=== PATIENT | female | born 1950 | race Caucasian/White ===

== ENCOUNTER → 2017-02-13 | Outpatient (CLI) | payer MEDICARE, OTHER | END | disposition home or self-care (01) | LOC: GMAM 10:21 | PROVIDERS: ATTEND Family Medicine | DX: E03.8 Other specified hypothyroidism (principal) ==

== ENCOUNTER → 2017-03-11 | Outpatient (CLI) | payer MEDICARE, OTHER ==
--- NOTE | 2017-03-11 16:08 | MRI ---
Study: MRI of the Right Shoulder. Indication: SHOULDER PAIN Technique: Multiplanar, multi sequence MRI of the right shoulder was obtained without intravenous contrast. Comparison: None. Findings: Mild to moderate AC joint osteoarthritis. Type I acromion with mild lateral downsloping. Small-volume subacromial/subdeltoid bursal fluid. Supraspinatus and infraspinatus tendinosis with irregular high-grade articular tearing throughout the supraspinatus tendon insertion and anterior infraspinatus tendon insertion. The tear extends over an AP length of 23 mm and a transverse width of 7 mm. It involves at least 90% of expected tendon thickness anteriorly where full-thickness extension may be present. In addition at the anterior infraspinatus there is medial delamination of the tear into the critical zone. No tendon retraction. Subscapularis tendinosis. Teres minor tendon intact. Mild atrophy superior margin subscapularis muscle belly. No fatty infiltration. Intracapsular long head biceps tendinosis. Circumferential labral truncation and tearing most pronounced superiorly. Minimal glenohumeral joint osteoarthritis with a tiny joint effusion. No acute fracture. Impression: High-grade tear articular tearing throughout the supraspinatus tendon insertion and anterior infraspinatus tendon insertion where there is medial delamination into the critical zone. Subscapularis tendinosis. Mild atrophy superior margin subscapularis muscle belly. Circumferential labral truncation and tearing. Minimal glenohumeral joint osteoarthritis. Mild to moderate AC joint osteoarthritis. Electronically signed by: Chris Olmedo MD 03/11/2017 4:08 PM CDT
== END | disposition home or self-care (01) ==
LOC: MRI 08:56
PROVIDERS: ATTEND Family Medicine
DX: M25.511 Pain in right shoulder (principal)

== ENCOUNTER → 2017-04-28 | Outpatient (CLI) | payer MEDICARE, OTHER ==
--- NOTE | 2017-04-28 14:40 | RAD ---
EXAM DESCRIPTION: Pelvis CLINICAL HISTORY: PAIN IN LEFT HIP COMPARISON: None. TECHNIQUE: AP pelvis FINDINGS: Phlebolith type calcifications are observed centrally in the pelvis. Mild degenerative changes are seen in the pubic symphysis. No fracturing is detected. Proximal femurs are normal. IMPRESSION: Mild degenerative changes are observed. No fracturing is detected. Electronically signed by: Daniel De Leon MD 04/28/2017 2:39 PM CDT
--- NOTE | 2017-04-28 14:41 | RAD ---
EXAM DESCRIPTION: Hip,Left 2 Views CLINICAL HISTORY: PAIN IN LT HIP COMPARISON: None. TECHNIQUE: AP and frog lateral left FINDINGS: Mild degenerative changes are observed in the pubic symphysis. The femur is unremarkable. No fracture or dislocation is seen. IMPRESSION: Normal left hip. Electronically signed by: Daniel De Leon MD 04/28/2017 2:39 PM CDT
== END | disposition home or self-care (01) ==
LOC: RAD 07:40
PROVIDERS: ATTEND Orthopaedic Surgery
DX: M25.552 Pain in left hip (principal)

== ENCOUNTER → 2017-11-01 | Outpatient (CLI) | payer MEDICARE, OTHER | LOC: GMA 17:13 | PROVIDERS: ATTEND Nurse Practitioner Family | DX: N30.00 Acute cystitis without hematuria (principal) ==

== ENCOUNTER → 2017-11-17 | Outpatient (CLI) | payer MEDICARE, OTHER ==
--- NOTE | 2017-11-18 08:52 | MRI ---
EXAM DESCRIPTION: Lumbar Spine w/o Contrast MRI. CLINICAL HISTORY: BACK PAIN COMPARISON: MRI scan lumbar spine 08/03/2013. TECHNIQUE: Multiplanar, multiple standard sequences, non contrast MRI, lumbar spine. FINDINGS: L5-S1: Disc desiccation minimal disc space loss. Anterior bulging. Small Schmorl's node anterior L5 endplate. Minimal disc bulge into the canal and both foramina. Mild canal narrowing. Facets and ligaments unremarkable. L4-5: Minimal disc space loss posterior. Grade 1 retrolisthesis. Posterior broad-based disc bulge is minimal, but possible small midline extrusion inferior abutting the thecal sac. Appears to be chronic. Mild to moderate canal narrowing. Mild hypertrophy of the bilateral flavum ligaments. Bilateral mild foraminal narrowing. Facets negative. L3-4: Minimal desiccation. Tiny posterior bulge into the canal and right foramen. Mild canal narrowing. 5 to 6 mm protrusion into the left foramen, abutting the left L3 nerve; foramen is moderately narrowed. New since the prior study. Bilateral flavum ligament hypertrophy. L2-3: Disc desiccation and minimal disc space loss. Small Schmorl's node in the inferior L2 endplate. Anterior disc bulging. Tiny posterior disc bulge with mild canal narrowing. Bilateral foramina are patent. Minimal flavum ligament hypertrophy. Facets negative. L1-2: disc unremarkable and disc space preserved. Canal and foramina are patent. Minimal hypertrophy of the posterior ligaments. Facets negative. T12-L1: Disc is unremarkable and disc space preserved. Canal and foramina are patent. Posterior ligaments and facets are negative. Conus terminates at this level. Paravertebral soft tissues negative. Normal marrow signal in the remaining vertebral bodies and the posterior elements. Vertebral bodies are not compressed at any level. IMPRESSION: 1. Posterior L4-5 disc bulge with midline small inferior disc extrusion which appears to be chronic. No evidence of nerve impingement or significant canal narrowing. Bilateral mild foraminal narrowing. Grade 1 retrolisthesis. 2. L3-4 disc protrusion into the left foramen abutting the exiting left L3 nerve, new finding in the interval since the prior study. Moderate foraminal narrowing. Correlate with clinical findings of left L3 radiculopathy. Electronically signed by: Odilon Boyle MD 11/18/2017 8:51 AM SOCIAL ECONOMIST
== END ==
LOC: MRI 12:53
PROVIDERS: ATTEND Nurse Practitioner Acute Care
DX: M25.552 Pain in left hip (principal); M51.26 Other intervertebral disc displacement, lumbar region

== ENCOUNTER 2017-11-22 09:21 | Emergency (ER) | payer MEDICARE, OTHER ==
[2017-11-22 09:32] VITALS: BP 160/87; TEMP 97.1; O2SAT 97
--- NOTE | 2017-11-22 10:02 | ED.PDOC ---
History of Present Illness - General Chief Complaint: General Stated Complaint: Left hip pain Time Seen by Provider: 11/22/17 09:54 Source: patient Exam Limitations: no limitations - History of Present Illness Initial Comments: Deidre Hinkle 67 y/o female seen er today with sharp burning pain on left hip radiating ro her groin for the last 7 days.Stated hurts when she walks and moves around.Denies history of remote or recent trauma on her left hip.Had same pain last year seen by orthopedist went for PT and got better .Now it recurred and MRI-left hip showing labral tear left hip no fracture ordered by Md and Mri of her back no significant disc herniation and fracture . Occurred: other - see hpi Pain - Lower Extremity: moderate: Left Thigh/Hip Method of Injury: unknown Improving Factors: rest Worsening Factors: movement Allergies/Adverse Reactions: Allergies Ofloxacin [From Floxin] Allergy (Verified 11/22/17 09:31) Sulfate Allergy (Verified 11/22/17 09:31) Home Medications: Ambulatory Orders Acetaminophen W/ Codeine [Tylenol w/Codeine 300-30 mg] 1 tab PO Q6HRS #20 tab Review of Systems - Review of Systems Constitutional: States: no symptoms reported EENTM: States: no symptoms reported Respiratory: States: no symptoms reported Cardiology: States: no symptoms reported Gastrointestinal/Abdominal: States: no symptoms reported Genitourinary: States: no symptoms reported Musculoskeletal: States: see HPI Skin: States: no symptoms reported Neurological: States: no symptoms reported All other Systems: Reviewed and Negative, No Change from Baseline Past Medical History (General) - Patient Medical History Hx Stroke: No Hx Congestive Heart Failure: No Hx Thyroid Disease: Yes Hx Diabetes: No Surgical History: tonsillectomy, other - hysterectomy,right shoulder - Vaccination History Hx Influenza Vaccination: Yes - 2017 Hx Pneumococcal Vaccination: Yes - Social History Hx Tobacco Use: No Hx Physical Abuse: No Hx Emotional Abuse: No Hx Suspected Abuse: No Family Medical History - Family History Mother Family History: No Known Living Status: Physical Exam - Physical Exam General Appearance: Alert, Comfortable, No apparent distress Eyes, Ears, Nose, Throat: normal ENT inspection Neck: non-tender, full range of motion, supple Cardiovascular/Respiratory: regular rate, rhythm, no M/R/G, normal peripheral pulses, normal breath sounds Gastrointestinal/Abdominal: non-tender, no organomegaly Back: normal inspection, no CVA tenderness, no vertebral tenderness Thigh/Hip: normal inspection, normal ROM - mild pain on hip extension left hip, bone tenderness - left hip, soft tissue tenderness - left groin Leg: normal inspection, non-tender Knee: normal inspection, non-tender Ankle: normal inspection, non-tender Foot: normal inspection, non-tender Neuro/Tendon: normal sensation, normal motor functions, normal tendon functions , responds to pain Mental Status: alert, oriented x 3 Skin: normal color, warm/dry Progress - Progress Progress: 11/22/17 10:05 Vital Signs - 8 hr 11/22/17 09:27 Temperature 97.1 F L Pulse Rate [ 84 Left Radial] Respiratory 20 Rate Blood Pressure 160/87 [Left Arm] O2 Sat by Pulse 97 Oximetry Departure - Departure Clinical Impression: Hip pain, left Labral tear of left hip joint Qualifiers: Encounter type: initial encounter Qualified Code(s): S73.192A - Other sprain of left hip, initial encounter Time of Disposition: 10:06 Disposition: Discharge to Home or Self Care Condition: Fair Departure Forms: ED Discharge - Pt. Copy, Patient Portal Self Enrollment Instructions: Hip Labral Tears, DI for Hip Labral Tear Activity: ambulate only with walker Referrals: Benson Pringle MD [Primary Care Provider] - 1-2 Weeks Prescriptions: Acetaminophen W/ Codeine [Tylenol w/Codeine 300-30 mg] 1 tab PO Q6HRS #20 tab Home Medications: Ambulatory Orders Acetaminophen W/ Codeine [Tylenol w/Codeine 300-30 mg] 1 tab PO Q6HRS #20 tab Additional Instructions: May take Barnhart 5 mg 1-2 tabs every 6 hours for pain regularly.;Follow up with primary Md 11/24/2017
[2017-11-22] MEDS ORDERED: PROMETHAZINE HCL INJ 25 MG/ML VIAL IM ONE (10:07)
[2017-11-22] MEDS ORDERED: MORPHINE SULFATE INJ 10 MG/ML VIAL IM ONE (10:07)
== END 2017-11-22 10:41 | disposition home or self-care (01) ==
LOC: ER 09:21
DX: S73.192A Other sprain of left hip, initial encounter (principal); E07.9 Disorder of thyroid, unspecified; X58.XXXA Exposure to other specified factors, initial encounter; Y92.9 Unspecified place or not applicable
CPT/HCPCS: J2270; J2550

== ENCOUNTER → 2017-12-31 | Outpatient (CLI) | payer MEDICARE, OTHER | LOC: GMAM 10:42 | PROVIDERS: ATTEND Family Medicine | DX: E03.8 Other specified hypothyroidism (principal); E55.9 Vitamin D deficiency, unspecified ==

== ENCOUNTER → 2018-01-30 | Outpatient (CLI) | payer MEDICARE, OTHER ==
--- NOTE | 2018-01-31 15:23 | US ---
EXAM DESCRIPTION: Carotid Duplex CLINICAL HISTORY: 67 years, Female, CAROTID STENOSIS COMPARISON: None. FINDINGS: Bilateral ICA to CCA ratios are normal. There is plaque in the right carotid bulb with estimated stenosis of 46%. There is plaque in the left carotid bulb with estimated stenosis of 12%. RIGHT: The common carotid, proximal, mid and distal internal carotid and external carotid arteries are otherwise patent without elevated systolic velocities. Vertebral artery flow is antegrade. LEFT: The common carotid, proximal, mid and distal internal carotid and external carotid arteries are otherwise patent without elevated systolic velocities. Vertebral artery flow is antegrade. IMPRESSION: Bilateral carotid bulb plaque with estimated stenoses as above. No pathologically elevated velocities to suggest hemodynamically significant stenosis. Antegrade flow in the vertebral arteries. Electronically signed by: Odilon Desouza 01/31/2018 3:22 PM CDT
== END ==
LOC: US 09:57
PROVIDERS: ATTEND Family Medicine
DX: I65.23 Occlusion and stenosis of bilateral carotid arteries (principal)

== ENCOUNTER → 2018-06-12 | Outpatient (CLI) | payer MEDICARE, OTHER ==
--- NOTE | 2018-06-12 14:13 | MRI ---
MRI right shoulder without contrast INDICATION: Shoulder pain chronic anterior TECHNIQUE: Noncontrast MR imaging right shoulder FINDINGS: No bicep rupture or dislocation. Mild interstitial partial tear and tendinosis subscapularis tendon without rupture or retraction There is a full-thickness tear of the anterior supraspinatus tendon at the rotator interval with adjacent bursitis. There is more generalized moderate subacromial and subdeltoid bursitis. Mild to moderate hypertrophic AC joint osteoarthrosis. No displaced labral tear. No advanced glenohumeral arthrosis. Mild interstitial tendinosis infraspinatus. Type II morphology of the acromion. Mild grade 1 marbling throughout the rotator cuff muscle bellies. The supraspinatus tear measures approximately 16 mm in AP dimension on the sagittal images. Retraction is approximately 14 mm. IMPRESSION: Full-thickness retracted tear anterior supraspinatus without advanced atrophy Tendinosis and low-grade interstitial fissuring subscapularis Moderate bursitis Mild to moderate AC joint arthrosis Electronically signed by: Cesar Ireland MD 06/12/2018 2:12 PM CDT
== END ==
LOC: MRI 08:00
PROVIDERS: ATTEND Orthopaedic Surgery
DX: M75.101 Unspecified rotator cuff tear or rupture of right shoulder, not specified as traumatic (principal); M19.011 Primary osteoarthritis, right shoulder

== ENCOUNTER → 2018-07-07 | Outpatient (CLI) | payer MEDICARE, OTHER | LOC: GMAM 11:17 | PROVIDERS: ATTEND Family Medicine | DX: L65.9 Nonscarring hair loss, unspecified (principal) ==

== ENCOUNTER → 2018-08-21 | Outpatient (CLI) | payer MEDICARE, OTHER | LOC: RESP 09:26 | PROVIDERS: ATTEND Orthopaedic Surgery | DX: Z01.818 Encounter for other preprocedural examination (principal) ==

== ENCOUNTER 2018-09-15 05:43 | Day surgery (SDC) | payer MEDICARE, OTHER ==
--- NOTE | 2018-09-14 09:08 | HP ---
CHIEF COMPLAINT: Right shoulder pain. HISTORY OF PRESENT ILLNESS: Deidre is a 68-year-old female with a history of long-term shoulder pain. She has tried conservative measures, however, has failed to gain relief. Deidre did have an MRI which showed a tear of the anterior supraspinatus. Because of her failure of conservative measures, she has requested operative intervention. After discussing the risks, benefits and alternatives to that, the patient has given informed consent. PAST SURGICAL HISTORY: 1. Hysterectomy. 2. Cataract removal. 3. Tonsillectomy. MEDICATIONS: 1. Alprazolam. 2. Atorvastatin. 3. Cefdinir. 4. Chlorhexidine. 5. Clindamycin. 6. Diflucan. 7. Finasteride. 8. Fluconazole. 9. Fluticasone. 10. Furosemide. 11. Gabapentin. 12. Hydrochlorothiazide. 13. Hydrocodone. 14. Hyoscyamine. 15. Levothyroxine. 16. Meloxicam. 17. Methylprednisolone. 18. Chlorpheniramine. 19. Potassium. 20. Rifampin. 21. Sertraline. 22. Tramadol. 23. Triamterene. 24. Zolpidem. 15. Zyrtec. ALLERGIES: AUGMENTIN, CIPROFLOXACIN, SULFA DRUGS. CODE STATUS: Full code. IMMUNIZATIONS: Up to date. FAMILY HISTORY: None pertinent to today's complaint. SOCIAL HISTORY: The patient does not drink, smoke or use any illicit drugs. REVIEW OF SYSTEMS: Negative except as indicated in the History of Present Illness. PHYSICAL EXAMINATION: VITAL SIGNS: Blood pressure 132/84. Pulse 106. Height 5'3". Weight 167 pounds. MENTAL STATUS: The patient is awake, alert, and is able to give a good history and participate in the physical. The patient is oriented to person, place and time. SKIN: Normal tone and turgor. HEENT: Normocephalic, atraumatic. Pupils equal, round and reactive. Mucosal membranes are moist. NECK: Normal range of motion. No thyromegaly, no lymphadenopathy. CHEST: Normal respiratory excursion. CARDIAC: Regular rate and rhythm. No murmurs, rubs or gallops. MUSCULOSKELETAL: She has tenderness to palpation in the subacromial space. She has intact sensation throughout the extremity. She maintains full abduction as well as forward flexion. Publicity Manager strength is 5/5. She has pain to resisted abduction and forward flexion. She has pain with internal and external rotation during forward flexion. Internal rotation is to about to the level of L2. She has a negative belly press. IMAGING: There was an MRI done which does demonstrate a tear of the anterior rotator cuff involving the supraspinatus. ASSESSMENT: 1. Rotator cuff tear. PLAN: The plan at this point is for rotator cuff repair. We have discussed the risks, benefits, and alternatives to operative therapy and the patient has given informed consent. #[id number] [facility]
[2018-09-15] MEDS ORDERED: SODIUM CHL 0.9% 100ML MINI-BAG 100 ML IVPB ONE (05:50)
[2018-09-15] MEDS ORDERED: LACTATED RINGERS 1,000 ML ONE (05:50)
[2018-09-15] MEDS ORDERED: ceFAZolin SODIUM 1 GM VIAL ONE (05:51)
[2018-09-15] MEDS ORDERED: ACETAMINOPHEN IV 1000MG 100 ML ONE (06:30)
[2018-09-15] MEDS ORDERED: fentaNYL CITRATE INJ 50 MCG/ML AMP ONE (06:31)
[2018-09-15] MEDS ORDERED: ROCURONIUM BROMIDE 10 MG/ML VIAL ONE (06:31)
[2018-09-15] MEDS ORDERED: MIDAZOLAM INJ 2 MG/2 ML VIAL ONE (06:31)
[2018-09-15] MEDS ORDERED: BUPIVACAINE 0.5% 30 ML VIAL INJ ONE (06:32)
[2018-09-15] MEDS ORDERED: BUPIVACAINE LIPOSOME 13.3 MG/ML VIAL INJ ONE (06:32)
[2018-09-15] MEDS ORDERED: KETAMINE HCL 100 MG/ML VIAL ONE (07:33)
[2018-09-15] MEDS: ceFAZolin SODIUM 1 GM VIAL ONE ×2 (07:48→08:28)
[2018-09-15] MEDS: VANCOMYCIN HCL INJ 1,000 MG VIAL IVPB ONE ×2 (07:48→08:28)
[2018-09-15] MEDS ORDERED: SUGAMMADEX SODIUM 200 MG/2 ML VIAL IV ONE (08:51)
[2018-09-15] MEDS ORDERED: raNITIdine HCL INJ 25 MG/ML VIAL IV ONE (10:00)
[2018-09-15] MEDS ORDERED: PROPOFOL 200 MG/20 ML VIAL IV ONE (10:00)
[2018-09-15] MEDS ORDERED: LIDOCAINE 1% 10 ML VIAL INJ ONE (10:00)
[2018-09-15] MEDS ORDERED: DEXAMETHASONE INJ 10 MG/ML VIAL IV ONE (10:00)
[2018-09-15] MEDS ORDERED: METOCLOPRAMIDE HCL INJ 10 MG/2 ML VIAL IV ONE (10:00)
[2018-09-15] MEDS ORDERED: ePHEDrine SULF 50 MG/ML IV ONE (10:00)
[2018-09-15] MEDS ORDERED: HYDROcodone 5MG/APAP 325MG 1 EA TAB ONE (10:07)
[2018-09-15 11:07] VITALS: BP 156/84; TEMP 97.5; O2SAT 95
--- NOTE | 2018-09-17 09:44 | OP ---
DATE OF PROCEDURE: 09/15/18 PREOPERATIVE DIAGNOSIS: 1. Rotator cuff tear of the right shoulder. POSTOPERATIVE DIAGNOSIS: 1. Rotator cuff tear of the right shoulder. PROCEDURE: 1. Rotator cuff repair. SURGEON: Surjit Soriano MD. SCORER HELPER: Odilon Kunz CST, SA-C. ANESTHESIA: General. COMPLICATIONS: None. FINDINGS: Approximately 2 cm U-shaped tear involving the anterior aspect of the supraspinatus. INDICATION: Ms. Hinkle has a very long history of pain in the shoulder. It has been getting progressively worse. She had an MRI which revealed a rotator cuff tear. Because of the presence of the tear and the failure of conservative measures, she requested operative intervention. After discussing the risks, benefits and alternatives to that, the patient has given informed consent for rotator cuff repair. PROCEDURE: The patient was brought to the Operating Room and placed in the supine position. General anesthesia was induced and the patient was transitioned into the beach chair position. The arm and shoulder were sterilely prepped and draped. An incision was made at the lateral aspect of the acromion. Full thickness skin flaps were developed. The incision was carried down to the deltoid which was split between the anterior and middle heads. A complete bursectomy was performed and minor acromioplasty performed. Following that, the the rotator cuff was identified and examined. The aforementioned cuff tear was noted. The area of the anatomic footprint was debrided and a SpeedBridge construct using a medial row and a lateral row of suture anchors was used to reapproximate the cuff tear in anatomic fashion. The shoulder was taken through a range of motion and the rotator cuff was stable without any undue tension. The wound was very thoroughly irrigated and closed with reapproximation of the deltoid, followed by closure of the skin with a combination of running and interrupted suture. Sterile dressings were placed. The patient was placed in a sling. The patient was awoken from anesthesia and taken to Recovery. POSTOPERATIVE PLAN: She will be limited with regards to range of motion, but start early passive range of motion in approximately 10 days. #[id number] [facility]
== END 2018-09-15 11:00 | disposition home or self-care (01) ==
LOC: AMB 05:43
PROVIDERS: ATTEND Orthopaedic Surgery
DX: M75.101 Unspecified rotator cuff tear or rupture of right shoulder, not specified as traumatic (principal); E66.9 Obesity, unspecified; Z90.710 Acquired absence of both cervix and uterus; Z88.1 Allergy status to other antibiotic agents; Z88.0 Allergy status to penicillin; Z88.8 Allergy status to other drugs, medicaments and biological substances; Z79.899 Other long term (current) drug therapy
CPT/HCPCS: 01630; 23420; 80307; J0690; J1100; J2250; J2765; J2780; J3010; J3370; J3490; J7050; J7120

== ENCOUNTER → 2018-12-11 | Outpatient (CLI) | payer MEDICARE, OTHER | LOC: GMAM 14:28 | PROVIDERS: ATTEND Family Medicine | DX: E03.8 Other specified hypothyroidism (principal) ==

== ENCOUNTER → 2019-10-12 | Outpatient (CLI) | payer MEDICARE, OTHER | LOC: GMAM 14:07 | PROVIDERS: ATTEND Family Medicine | DX: R94.5 Abnormal results of liver function studies (principal) ==

== ENCOUNTER → 2019-10-15 | Outpatient (CLI) | payer MEDICARE, OTHER ==
--- NOTE | 2019-10-18 08:41 | US ---
EXAM DESCRIPTION: Liver: ULTRASOUND. CLINICAL HISTORY: ABNORMAL RESULTS OF LIVER FUNCTION STUDIES COMPARISON: Ultrasound gallbladder September 2012. No prior report. TECHNIQUE: Transabdominal scannin-dimensional and Doppler modes. FINDINGS: Gallbladder: normal size, shape, echogenicity; no intraluminal stones or sludge. No fluid around the gallbladder. No wall thickening. 1.7 mm. Non-tender with transducer pressure. Common bile duct: caliber 4.4 mm within normal limits. Liver: Increased echogenicity; contour liver capsule smooth where seen. No fluid around the liver. Intrahepatic biliary ducts normal caliber. Doppler hepatopedal flow portal vein. 7.4 mm. Long axis right lobe 14.1 cm. Pancreas: normal size and heterogeneous echogenicity. Duct not seen. Right kidney: long axis measures 11.0 cm. Normal cortical echogenicity. Normal cortical thickness. No echogenic stones or hydronephrosis. Aorta proximal: Normal caliber 2.1 cm. IMPRESSION: 1. Steatosis of the liver but no enlargement. Vascularity and ducts are physiologic. Smooth capsule with no ascites. 2. Remaining organs in the right upper quadrant of the abdomen are unremarkable. No imaging of the stomach, left kidney, or spleen. Electronically signed by: Odilon Boyle MD 10/18/2019 8:40 AM LENS POLISHER HAND
== END ==
LOC: US 09:30
PROVIDERS: ATTEND Family Medicine
DX: R94.5 Abnormal results of liver function studies (principal); K76.0 Fatty (change of) liver, not elsewhere classified

== ENCOUNTER → 2019-10-19 | Outpatient (CLI) | payer MEDICARE, OTHER | LOC: GMAM 14:35 | PROVIDERS: ATTEND Family Medicine | DX: R94.5 Abnormal results of liver function studies (principal); D64.9 Anemia, unspecified ==

== ENCOUNTER → 2019-11-12 | Outpatient (CLI) | payer MEDICARE, OTHER | LOC: GMAM 10:21 | PROVIDERS: ATTEND Family Medicine | DX: K76.0 Fatty (change of) liver, not elsewhere classified (principal); M25.50 Pain in unspecified joint ==

== ENCOUNTER → 2020-05-02 | Outpatient (CLI) | payer MEDICARE, OTHER ==
--- NOTE | 2020-05-02 10:22 | RAD ---
EXAM DESCRIPTION: Shoulder,Left 2 or More Views CLINICAL HISTORY: 69 years Female, SHOULDER PAIN LEFT COMPARISON: None. Findings: Four views/radiographs Location: Left shoulder No acute fracture or dislocation. Moderate acromioclavicular osteoarthritis. Soft tissues are unremarkable. Subacromial space is maintained. Visualized chest is clear. Atherosclerotic disease. Mild glenohumeral osteoarthritis. IMPRESSION: No evidence of acute process in the left shoulder. Electronically signed by: Matias Pleitez MD 05/02/2020 10:20 AM CDT
== END ==
LOC: RAD 08:24
PROVIDERS: ATTEND Orthopaedic Surgery
DX: M25.512 Pain in left shoulder (principal)

== ENCOUNTER → 2020-10-24 | Outpatient (CLI) | payer MEDICARE, OTHER | LOC: GMAM 14:03 | PROVIDERS: ATTEND Family Medicine | DX: E55.9 Vitamin D deficiency, unspecified (principal); E03.8 Other specified hypothyroidism; E78.2 Mixed hyperlipidemia; I10 Essential (primary) hypertension ==